=== PATIENT | male | born 1965 | race Caucasian/White ===

== ENCOUNTER → 2019-02-16 | Day surgery (SDC) | payer OTHER ==
[~2019-02-16] MED LIST: CIALIS2.5 MG; EPINEPHRINE HCL 1:1000 1ML 1 MG/ML AMP ONE; FLOMAX0.4 MG PO; FLONASE; KETAMINE HCL INJ 50 MG/ML 10 ML VIAL ONE; MIDAZOLAM HCL 2 MG/2 ML VIAL ONE; PROPOFOL IV EMULSION 10 MG/ML 50 ML VIAL ONE; TESTOSTERONE IJ; TESTOSTERONE5 GM; ZEGERID 20 MG1 EACH; ZYRTEC10 M3
[2019-02-16 11:00] VITALS: BP 120/82
--- NOTE | 2019-02-16 17:45 | Operative Report ---
DATE OF PROCEDURE: 02/16/2019 SURGEON: Bret Morelos MD PROCEDURES: Esophagogastroduodenoscopy with biopsies and colonoscopy with polypectomy and biopsies. INDICATIONS FOR EGD: Heartburn, bloating. INDICATIONS FOR COLONOSCOPY: Colorectal cancer screening. MEDICATIONS: The patient was done under MAC, please see anesthesiologist's note. PROCEDURE IN DETAIL: With the patient in left lateral decubitus position, a flexible fiberoptic Olympus gastroscope was introduced into the esophagus under direct visualization without any difficulty. There was some patchy erythema noted in distal esophagus. Minute tongues of velvety red mucosa were noted to extend proximally from the GE junction and biopsies were obtained to rule out Akers's. The scope was then advanced with ease into the stomach traversing a small sliding hiatal hernia. Mucosa overlying the antrum and the body revealed some patchy erythema and low-grade to moderate edema and biopsies were obtained and sent to stain for H pylori. Several hyperplastic-appearing polyps were noted in the body and some were partially excised with the cold biopsy forceps. The pylorus was of normal contour and shape, it was intubated with ease and the scope was advanced all the way to the second portion of the duodenum. Biopsies were obtained from the proximal second portion and duodenal bulb to rule out sprue. The scope was then withdrawn back into the stomach and retroflexed and mucosa overlying the fundus and cardia appeared to be within normal limits. The scope was then straightened out. The scope was subsequently withdrawn. The patient tolerated the procedure well. IMPRESSION: 1. Distal esophagitis, mild. 2. Rule out Akers esophagus. 3. Small sliding hiatal hernia. 4. Gastritis, biopsied. Biopsies sent to stain for Helicobacter pylori. 5. Gastric polyps, hyperplastic appearing, some partially excised with the cold biopsy forceps. 6. Rule out sprue. PLAN: Follow up histology. Initiate Protonix 40 mg one p.o. q.a.m. a.c. PROCEDURE IN DETAIL: The patient was then turned around after adequate lubrication of the anal canal, flexible fiberoptic Olympus colonoscope was inserted into the rectum with ease and advanced all the way to the cecum. It was then withdrawn slowly. Mucosa overlying the cecum appeared to be within normal limits. One polyp was snared from the distal ascending colon. One polyp was hot biopsied from the transverse colon. One polyp was snared from the descending colon. Diverticular disease was noted to involve the sigmoid colon. There were some patchy mild inflammatory changes noted in the sigmoid and rectum and biopsies were obtained. One polyp was snared from the sigmoid colon. One polyp was hot biopsied from the rectum. The scope was then retroflexed into the distal rectum and small internal hemorrhoids were noted, none of which was actively bleeding. The scope was then straightened out, it was subsequently withdrawn. The patient tolerated the procedure well. IMPRESSION: 1. Ascending colon polyp, snared. 2. Transverse colon polyp, hot biopsied. 3. Descending colon polyp, snared. 4. Diverticulosis. 5. Sigmoid colon polyp, snared. 6. Rectal polyp, hot biopsied. 7. Proctosigmoiditis, mild, biopsies obtained. 8. Internal hemorrhoids, none actively bleeding. PLAN: Follow up histology. Initiate high-fiber, low-fat diet. Initiate high-fiber supplement. VSL#3 one p.o. daily. The patient might benefit from a followup colonoscopy in 3 years. Bret Morelos MD [facility] [place] /[id number] cc: John Lopez MD
== END | disposition home or self-care (01) ==
LOC: OR 06:52
PROVIDERS: ATTEND Internal Medicine Gastroenterology
DX: Z12.11 Encounter for screening for malignant neoplasm of colon (principal); D12.2 Benign neoplasm of ascending colon; D12.5 Benign neoplasm of sigmoid colon; D12.3 Benign neoplasm of transverse colon; R12 Heartburn; R14.0 Abdominal distension (gaseous); K20.9 Esophagitis, unspecified; K44.9 Diaphragmatic hernia without obstruction or gangrene; K29.70 Gastritis, unspecified, without bleeding; K31.7 Polyp of stomach and duodenum; K63.5 Polyp of colon; K57.30 Diverticulosis of large intestine without perforation or abscess without bleeding; K62.1 Rectal polyp; K63.89 Other specified diseases of intestine; K64.8 Other hemorrhoids; R03.0 Elevated blood-pressure reading, without diagnosis of hypertension; Z01.810 Encounter for preprocedural cardiovascular examination; K22.70 Barrett's esophagus without dysplasia
CPT/HCPCS: 43239; 45384; 45385; 93005; J0171; J2250; J2704; 45378

== ENCOUNTER 2019-03-15 11:14 | Inpatient (IN) | payer OTHER ==
[~2019-03-15] VITALS: Ht 188 cm; Wt 181.4 kg
[~2019-03-15 11:14] MED LIST changes: -EPINEPHRINE HCL 1:1000 1ML 1 MG/ML AMP ONE; -KETAMINE HCL INJ 50 MG/ML 10 ML VIAL ONE; -MIDAZOLAM HCL 2 MG/2 ML VIAL ONE; -PROPOFOL IV EMULSION 10 MG/ML 50 ML VIAL ONE
[2019-03-15] MEDS ORDERED: SODIUM CHLORIDE 0.9% 1000ML 1,000 ML IV SCH (12:00)
[2019-03-15] MEDS ORDERED: DILTIAZEM HCL 5 MG/ML 5 ML VIAL IV NR ×2 (12:00)
[2019-03-15] MEDS ORDERED: DILTIAZEM HCL 125 ML IV STA (12:06)
[2019-03-15 12:17] LABS: BASOPHILS # (AUTO) 0.1 (0.0-0.1); BASOPHILS % 0.5 % (0.0-1.0); EOSINOPHILS # (AUTO) 0.1 (0.0-0.4); EOSINOPHILS % 0.5 % (0.0-6.0); HEMATOCRIT 51.2 % (38.2-49.6); HEMOGLOBIN 16.8 g/dL (14.0-18.0); LYMPHOCYTES # (AUTO) 1.6 (1.0-3.2); LYMPHOCYTES % 13.9 % (18.0-39.1); MEAN CORPUSCULAR HEMOGLOBIN 27.4 pg (28-32); MEAN CORPUSCULAR HGB CONC 32.8 g/dL (31-35); MEAN CORPUSCULAR VOLUME 83.4 fL (81-99); MONOCYTES # (AUTO) 0.8 (0.2-0.8); MONOCYTES % 7.1 % (4.4-11.3); NEUTROPHILS # (AUTO) 8.9 (2.1-6.9); NEUTROPHILS % 76.7 % (38.7-80.0); PLATELET COUNT 241 x10e3/uL (140-360); RED BLOOD COUNT 6.14 x10e6/uL (4.3-5.7); RED CELL DISTRIBUTION WIDTH 14.1 % (11.7-14.4)
[2019-03-15 12:27] LABS: INR 1.04; PROTHROMBIN TIME 14.1 seconds (11.9-14.5)
[2019-03-15 12:28] LABS: PARTIAL THROMBOPLASTIN TIME 24.4 seconds (23.8-35.5)
[2019-03-15] MEDS ORDERED: ASPIRIN 81 MG CHEW TAB PO ONE (12:30)
[2019-03-15] MEDS ORDERED: ONDANSETRON HCL INJ 2MG/ML 2ML 2 MG/ML VIAL IV PRN (12:30)
[2019-03-15] MEDS ORDERED: ENOXAPARIN SODIUM INJ 100 MG/ML SYR SC SCH (12:30)
[2019-03-15 12:37] LABS: ALANINE AMINOTRANSFERASE 48 IU/L (0-55); ALBUMIN 3.4 g/dL (3.5-5.0); ALBUMIN/GLOBULIN RATIO 1.1 (0.8-2.0); ALKALINE PHOSPHATASE 54 IU/L (40-150); ANION GAP 13.8 mmol/L (8-16); BLOOD UREA NITROGEN 22 mg/dL (7-26); BUN/CREATININE RATIO 17 (6-25); CARBON DIOXIDE 25 mmol/L (22-29); CHLORIDE 101 mmol/L (98-107); CREATINE KINASE 116 IU/L (30-200); CREATININE, SERUM 1.28 mg/dL (0.72-1.25); EST GLOMERULAR FILTRATION RATE 59 ML/MIN (60-); GLUCOSE 125 mg/dL (74-118); MAGNESIUM 1.9 MG/DL (1.3-2.1); POTASSIUM 3.8 mmol/L (3.5-5.1); SODIUM 136 mmol/L (136-145)
--- NOTE | 2019-03-15 12:38 | Diagnostic Imaging Report ---
Examination: Single AP view of the chest. COMPARISON: None. INDICATION: Shortness of breath, tachycardia DISCUSSION: Lung volumes are low with bibasilar opacities. Trace right pleural effusion is suspected. Cardiomediastinal contour is enlarged with prominence of the central pulmonary vasculature. No acute osseous abnormality. IMPRESSION: Cardiomegaly with pulmonary venous congestion and suspected trace right pleural effusion. Signed by: Dr. Obed Morales M.D. on 03/15/2019 12:35 PM
[2019-03-15 12:56] LABS: THYROID STIMULATING HORMONE 2.356 uIU/mL (0.350-4.940)
[2019-03-15] MEDS: FAMOTIDINE 20 MG/2 ML VIAL IV SCH ×2 (13:10→21:50)
[2019-03-15] MEDS: ENOXAPARIN SOD INJ 60 MG/0.6 ML SYR SC SCH ×2 (13:10→21:50)
[2019-03-15] MEDS ORDERED: METOPROLOL TARTRATE INJ 1 MG/ML VIAL IV ONE (13:15)
--- OUTSIDE RECORDS SUMMARY | 2019-03-15 13:26 | XMS REPORT ---
Author Author [facility] Address Unknown Phone Unavailable Care Team Providers Care Supervisor [employer] Name Role Phone Brenda RINALDI Unavailable Unavailable Problems This patient has no known problems. Allergies, Adverse Reactions, Alerts This patient has no known allergies or adverse reactions. Medications This patient has no known medications. Results Test Description Test Time Test Comments Text Results Atomic Results Result Comments CHEST SINGLE (PORTABLE) 2019-03-15 12:34:00 [place] [address] Patient Name: ROSEANN COLEMAN MR #: [id number] : 1965 Age/Sex: 53/M Req #: [id number] Adm Physician: Ordered by: RENATE SCHWARTZ ADVICE NURSE Report #: [id number] Location: ER Room/Bed: Procedure: [id number] DX/CHEST SINGLE (PORTABLE) Exam Date: 03/15/19 Exam Time: 1210 REPORT STATUS: Signed Examination: Single AP view of the chest. COMP ARISON: None. INDICATION: Shortness of breath, tachycardia DISCUSSION: Lung volumes are low with bibasilar opacities. Trace right pleural effusion is suspected. Cardiomediastinal contour is enlarged with prominence of the central pulmonary vasculature. No acute osseous abnormality. IMPRESSION: Cardiomegaly with pulmonary venous congestion and suspected trace right pleural effusion. Signed by: Dr. Emre Frank M.D. on 03/15/2019 12:35 PM Dictated By: EMRE FRANK MD 1235 Transcribed By: DERIK on 03/15/19 1235 COPY TO: RENATE SCHWARTZ NP
--- NOTE | 2019-03-15 14:25 | NUR ---
patient transported to radiology for ct scan and then to icu room 195 patient on monitor and iv drip as ordered.
[2019-03-15] MEDS ORDERED: SODIUM CHLORIDE 0.9% 50ML 100 ML ONE (14:58)
[2019-03-15] MEDS ORDERED: IOPAMIDOL 370 MG/ML 200 ML INFUS..BTL INJ ONE (14:59)
--- NOTE | 2019-03-15 14:59 | NUR ---
Bariatric bed ordered for this patient @ [phone] today confirmation # [id number]
--- NOTE | 2019-03-15 15:45 | NUR ---
PATIENT RECEIVED FROM ER VIA STRETCHER. HE IS ALERT AND OX4. DENIES ANY PAIN OR DISCOMFORT. TELEMETRY SHOWS A-FIB W/AVR AND RATE OF 130. SARA, ADOPTED SISTER AT BEDSIDE. ON CARDIZEM DRIP AT 20MG/HR. DR. Jere RUVALCABA HERE TO SEE PATIENT.
[2019-03-15 16:00] VITALS: BP 105/77
--- NOTE | 2019-03-15 16:03 | Diagnostic Imaging Report ---
EXAMINATION: CT of the chest with contrast, PE protocol. TECHNIQUE: Spiral CT images of the chest were performed from the lung apices through the level of the adrenal glands after the IV administration of 100 cc Isovue-370. Thin section reconstructions were obtained with special concentration on the pulmonary arteries. COMPARISON: <none> CLINICAL HISTORY:Shortness of breath DISCUSSION: Vasculature: Filling defects within the apical and posterior segmental branches of the right upper lobe pulmonary artery (series 3 image 36 and image 46-47). No additional filling defects within the main, right or left, or their lobar pulmonary arteries. Distal segmental arterial evaluation is partially limited secondary to respiratory motion and patient body habitus. Pulmonary outflow tract is at the upper limits of normal in caliber. No ectasia or aneurysmal dilatation of the thoracic aorta. No right ventricular dilatation or septal bowing. Lungs: Perihilar predominant groundglass opacities and interlobular septal thickening. Passive atelectasis of the posterior basal segments of the lower lobes. Airways: Trachea, mainstem bronchi, and lobar bronchi are patent. Evaluation of the segmental bronchi is limited. Pleura: Trace bilateral pleural effusions. Heart and mediastinum: Cardiomegaly with prominent epicardial fat. No axillary, hilar, or mediastinal lymphadenopathy. Abdomen: Visualized portions of the liver and spleen are grossly unremarkable. Bones and soft tissues: No osseous destructive lesions. IMPRESSION: Limited evaluation secondary to respiratory motion artifact and patient body habitus. Apical and posterior right upper lobe segmental pulmonary emboli without evidence of right heart strain. Borderline enlargement of the pulmonary outflow tract suggests underlying pulmonary hypertension. Cardiomegaly with interstitial pulmonary edema and trace bilateral pleural effusions with passive atelectasis of the posterior basal segments of the lower lobes. Findings were discussed by telephone with Dr. Redmond at 3:35 PM 03/15/2019. Signed by: Dr. Obed Morales M.D. on 03/15/2019 4:00 PM
[2019-03-15] MEDS ORDERED: FUROSEMIDE INJ 10 MG/ML 4 ML VIAL IV ONE (16:15)
[2019-03-15] MEDS ORDERED: METOPROLOL TARTRATE INJ 1 MG/ML VIAL IV PRN (16:15)
[2019-03-15 17:00] VITALS: BP 117/60
[2019-03-15] MEDS ORDERED: DIGOXIN INJ 0.25 MG/ML 2 ML AMP IV ONE (17:00)
[2019-03-15 18:00] VITALS: BP 130/94
[2019-03-15 18:39] LABS: CLARITY,URINE CLEAR (CLEAR); COLOR,URINE YELLOW (YELLOW); LEUKOCYTE ESTERASE ,URINE NEGATIVE (NEGATIVE); NITRITE,URINE NEGATIVE (NEGATIVE)
[2019-03-15 18:40] LABS: BILIRUBIN,URINE NEGATIVE (NEGATIVE); KETONES,URINE NEGATIVE (NEGATIVE); PROTEIN,URINE DIPSTICK NEGATIVE (NEGATIVE); URINE UROBILINOGEN 0.2 mg/dL (0.2 - 1)
[2019-03-15 18:42] LABS: BACTERIA,URINE FEW /HPF; EPITHELIAL CELLS,URINE FEW /LPF; WBC,URINE (MAN) 0-5 /HPF (0-5)
[2019-03-15 19:00] VITALS: BP 130/98
[2019-03-15] MEDS: DILTIAZEM HCL 125 ML IV SCH (20:00)
[2019-03-15] MEDS ORDERED: ACETAMINOPHEN 325 MG TAB PO PRN (20:30)
[2019-03-15 20:50] LABS: CREATINE KINASE MB 1.1 ng/mL (0-5.0)
--- NOTE | 2019-03-15 23:09 | Consultation ---
DATE OF CONSULTATION: 03/15/2019 Cardiology Consult Note REASON FOR CONSULT: Atrial fibrillation with RVR. CHIEF COMPLAINT: Shortness of breath. HISTORY OF PRESENT ILLNESS: The patient is a 53-year-old man with history of morbid obesity, likely sleep apnea, had recent sleep study, results pending, history of hypogonadism, on testosterone replacement and prostate problems, who presents with several weeks of feeling weak and having shortness of breath, had orthopnea at home to the point, where he could not sleep in his bed and had to sleep in his recliner. He also complains about PND and is having to urinate at night frequently recently and some lower extremity edema. Does not have history of CAD or any other heart issues prior. He went to urgent care last week with complaints about shortness of breath and dry cough and was given some steroids and antibiotics for presumed bronchitis. However, symptoms did not improve. He went to the primary care doctor today, had EKG done showing atrial fibrillation with RVR and was told to go to the ER. Upon arrival to the ER, heart rates were in the 190s, so started on diltiazem drip. Heart rates are not improved in the 130s. Denies any chest pain. He says the shortness of breath is better after being put on oxygen. PAST MEDICAL HISTORY: As noted above. SOCIAL HISTORY: The patient does not smoke, drink, or abuse drugs. FAMILY HISTORY: As per HPI, otherwise noncontributory. REVIEW OF SYSTEMS: As per HPI. OUTPATIENT MEDICATIONS: Reviewed. OBJECTIVE: VITAL SIGNS: Temperature afebrile, pulse 136, respiratory rate 18, blood pressure 132/89, and saturating 98% on 4 L nasal cannula. GENERAL: Morbidly obese white man, in no acute distress. CARDIOVASCULAR: Irregular rate and rhythm, tachycardic. No murmurs. LUNGS: Bibasilar crackles. ABDOMEN: Morbidly obese, soft, nontender. EXTREMITIES: Lower extremity with bilateral lower extremity edema 1+. Warm, well perfused. NEURO AND PSYCH: Alert and oriented to person, place, and time. Normal affect. INPATIENT MEDICATIONS: Reviewed. LABORATORY DATA: Reviewed. Troponin is negative x1. BNP of 630. Creatinine 1.28. White count of 11.6, hemoglobin is 16. IMAGING DATA: Reviewed. Chest CT shows subsegmental pulmonary emboli, cardiomegaly and pulmonary edema. Electrocardiogram reviewed, shows atrial fibrillation with RVR. ASSESSMENT AND PLAN: 1. Atrial fibrillation with rapid ventricular response. 2. Pulmonary embolism. 3. Acute congestive heart failure exacerbation. PLAN: We will up titrate IV diltiazem drip, echocardiogram once heart rate better controlled. We will add digoxin for heart control if needed. Start IV Lasix. Further recommendations upon results of the echocardiogram. Thank you for this consult. We will continue to follow. MD LESTER Zee/MODL /[id number]
[2019-03-15 23:59] VITALS: BP 133/85
[2019-03-16] VITALS (16 sets, daily range): BP systolic 92–154; BP diastolic 64–114
[2019-03-16] MEDS: DILTIAZEM HCL 125 ML IV SCH (02:19)
--- NOTE | 2019-03-16 03:11 | History and Physical ---
CHIEF COMPLAINT: This is a 53-year-old gentleman, sent from the clinic for atrial fibrillation with rapid ventricular response. HISTORY OF PRESENTING ILLNESS: Mr. Vick Guerra has started to have upper respiratory symptoms, bronchitis, was seen in an Urgent Care Clinic. The patient was given p.o. antibiotics and also started on p.o. bronchodilators. The patient was feeling worse and the patient came to the clinic today and EKG was done. The patient was found to have atrial fibrillation with RVR, sent to the emergency room and the patient was given diltiazem. The patient's rate did get better, but the patient is back in atrial fibrillation with RVR. PAST MEDICAL HISTORY: 1. History of testosterone deficiency. 2. History of questionable diagnosis of sleep apnea. 3. History of morbid obesity. 4. The patient with history of erectile dysfunction. MEDICATIONS: He takes at home are cetirizine 10 mg daily. The patient is on Zegerid once a day, Cialis 2.5 mg daily. The patient has a history of benign prostatic hypertrophy, the patient is taking 0.4 mg x2 of Flomax, Flonase, and testosterone 2 mL injection every 3 weekly. SOCIAL HISTORY: No EtOH. No IV drug abuse. The patient does not have any smoking history either. FAMILY HISTORY: Noncontributory. ALLERGIES: NO KNOWN DRUG ALLERGIES. REVIEW OF SYSTEMS: Negative for chest pain. Positive for some shortness of breath. No nausea, vomiting, or diarrhea. No constipation. No rectal bleeding. No hematochezia. No hematemesis. Positive for shortness of breath on exertion, and the patient also has history of pedal edema. PHYSICAL EXAMINATION: VITAL SIGNS: Temperature is 98.9, pulse of 148, blood pressure is 159/37, respirations of 18. The patient is standing at 98% on 2 L of oxygen. HEENT: Normocephalic, atraumatic. The patient has a very thick neck. CVS: S1 and S2 irregular, distant, and also has tachycardic. ABDOMEN: Nontender, nondistended. Positive for an umbilical hernia. EXTREMITIES: No clubbing. No cyanosis. Positive for 2+ edema. LABORATORY VALUES: Initial white count 7.62, hemoglobin of 16.8, hematocrit 51.2, no left shift present. Chemistries; sodium 136, potassium 3.8, BUN of 22, creatinine of 1.28, total bilirubin is 1.3. BNP was 630.6. The patient's troponin is less than 0.01. Creatine kinase was 116, CK-MB was 1.40. Coags normal. D-dimer is 0.67. The patient's CT findings of the chest secondary to elevated D-dimer was limited evaluation secondary to respiratory motion, apical and posterior right upper lobe segmental pulmonary emboli without evidence of right heart strain, borderline enlargement of the pulmonary flow tract, and cardiomegaly with interstitial edema. The patient's CT chest x-ray shows cardiomegaly with pulmonary venous congestion. ASSESSMENT: 1. Atrial fibrillation with rapid ventricular response. 2. Pulmonary embolism. 3. Hypertension. 4. Hyperlipidemia. 5. Sleep apnea with obesity hypoventilation syndrome. 6. Cor pulmonale. 7. History of erectile dysfunction. PLAN: Plan is to continue to anticoagulate the patient with Lovenox. The patient has been started on the dose of Lovenox. The patient has been given Lasix 40 mg IV. Echocardiogram will be ordered. The patient will be on metoprolol 25 mg twice a day for rate control. We will check his TSH. Lipid panel has been ordered. CBC and CMP to be followed in the morning. The patient will need complete cardiac workup on a later date and will need anticoagulation bridged over to Coumadin and/or NOAC. Further recommendation per clinical course. We will continue to monitor the patient. A consult with Dr. Levin has been done for his atrial fibrillation with RVR. The patient might need amiodarone. We will leave it up to Cardiology. MD BEATA Ling/MODL /[id number]
[2019-03-16 05:21] LABS: BASOPHILS # (AUTO) 0.1 (0.0-0.1); BASOPHILS % 0.7 % (0.0-1.0); EOSINOPHILS # (AUTO) 0.1 (0.0-0.4); HEMATOCRIT 46.4 % (38.2-49.6); HEMOGLOBIN 15.1 g/dL (14.0-18.0); LYMPHOCYTES # (AUTO) 1.5 (1.0-3.2); LYMPHOCYTES % 14.7 % (18.0-39.1); MEAN CORPUSCULAR HEMOGLOBIN 27.4 pg (28-32); MEAN CORPUSCULAR HGB CONC 32.5 g/dL (31-35); MEAN CORPUSCULAR VOLUME 84.2 fL (81-99); MONOCYTES # (AUTO) 0.8 (0.2-0.8); MONOCYTES % 8.2 % (4.4-11.3); NEUTROPHILS # (AUTO) 7.6 (2.1-6.9); PLATELET COUNT 216 x10e3/uL (140-360); RED BLOOD COUNT 5.51 x10e6/uL (4.3-5.7); RED CELL DISTRIBUTION WIDTH 13.9 % (11.7-14.4)
[2019-03-16 05:37] LABS: ALANINE AMINOTRANSFERASE 39 IU/L (0-55); ALBUMIN 3.2 g/dL (3.5-5.0); ALBUMIN/GLOBULIN RATIO 1.1 (0.8-2.0); ALKALINE PHOSPHATASE 50 IU/L (40-150); ANION GAP 13.8 mmol/L (8-16); BLOOD UREA NITROGEN 19 mg/dL (7-26); BUN/CREATININE RATIO 17 (6-25); CALCIUM 8.4 mg/dL (8.4-10.2); CARBON DIOXIDE 27 mmol/L (22-29); CHLORIDE 103 mmol/L (98-107); CHOL/HDL RATIO 5.4 (3.9-4.7); CHOLESTEROL 156 MD/DL (0-199); EST GLOMERULAR FILTRATION RATE > 60 ML/MIN (60-); GLUCOSE 129 mg/dL (74-118); HDL CHOLESTEROL 29 MG/DL (40-60); LDL CHOLESTEROL 102 MG/DL (60-130); POTASSIUM 3.8 mmol/L (3.5-5.1); SODIUM 140 mmol/L (136-145); TRIGLYCERIDES 123 MG/DL (0-149)
[2019-03-16 05:47] LABS: MAGNESIUM 2.2 MG/DL (1.3-2.1)
[2019-03-16 06:10] LABS: FREE THYROXINE INDEX 2.2351 (1.4-3.8); THYROID STIMULATING HORMONE 1.52 uIU/mL (0.350-4.940)
[2019-03-16] MEDS: FUROSEMIDE INJ 10 MG/ML 4 ML VIAL IV SCH ×2 (06:56→10:39)
[2019-03-16] MEDS: PANTOPRAZOLE SOD 40 MG TABEC PO SCH ×2 (06:56→09:10)
[2019-03-16] MEDS ORDERED: METOPROLOL TARTRATE 25 MG TAB PO SCH ×2 (09:00→21:00)
[2019-03-16] MEDS: ENOXAPARIN SOD INJ 60 MG/0.6 ML SYR SC SCH ×2 (09:10→20:30)
[2019-03-16] MEDS: FAMOTIDINE 20 MG/2 ML VIAL IV SCH ×2 (09:10→20:30)
[2019-03-16 15:27] LABS: CREATINE KINASE MB 0.9 ng/mL (0-5.0)
--- NOTE | 2019-03-16 19:00 | NUR ---
Received patient from day nurse, patient is alert and oriented x 3. patient is currently on Cardizem drip, as per report, Dr. Levin ordered to stop drip at 2100 and patient started on po metoprolol. patient is currently stable.
[2019-03-16] MEDS: METOPROLOL TARTRATE 50 MG TAB PO SCH (20:30)
--- NOTE | 2019-03-16 21:00 | Progress Note ---
DATE: 03/16/2019 Cardiology Progress Note SUBJECTIVE: No major events overnight. Feels a little bit better today. OBJECTIVE: VITAL SIGNS: Temperature 98.6, pulse 83, respiratory rate 22, blood pressure 116/92, and saturating 96% on 2 L nasal cannula. GENERAL: Obese man, in no acute distress. CARDIOVASCULAR: Irregular rate and rhythm. No murmurs, rubs, or gallops. LUNGS: Decreased breath sounds in bilateral bases. ABDOMEN: Obese, soft, nontender, and nondistended. NEURO AND PSYCH: Alert and oriented to person, place, and time. Normal affect. INPATIENT MEDICATIONS: Reviewed. LABORATORY DATA: Reviewed. TELEMETRY DATA: Reviewed, now rate controlled atrial fibrillation. Echocardiogram reviewed, shows mild to moderately reduced LV ejection fraction of 35% to 40%. No significant valvular abnormalities. ASSESSMENT AND PLAN: 1. Acute systolic congestive heart failure exacerbation. 2. Atrial fibrillation with rapid ventricular response. 3. Pulmonary embolism, acute. PLAN: We will up titrate metoprolol to 50 mg and see if we can titrate diltiazem drip off. Plan for CLAY cardioversion tomorrow. Continue IV Lasix. Continue full-dose Lovenox. We will convert to Xarelto prior to discharge. MD LESTER Zee/LEATHA /[id number]
--- NOTE | 2019-03-16 21:51 | Progress Note ---
DATE: Progress Note SUBJECTIVE: The patient is here for pulmonary embolism, atrial fibrillation with rapid ventricular response, history of COPD, and history of morbid obesity. The patient currently is still in atrial fibrillation. The patient's on metoprolol has been increased to 50 mg twice a day. Cardizem drip has been decreased. The patient continues to be short of breath. PHYSICAL EXAMINATION: GENERAL: The patient is morbidly obese. VITAL SIGNS: Temperature is 98.6, pulse of 83, and blood pressure is 116/92. The patient's pulse oximetry is 94% on 2 liters of oxygen. HEENT: Normocephalic and atraumatic. Pupils are reactive to light and accommodation. CVS: Irregularly irregular. ABDOMEN: Protuberant. Umbilical hernia present. EXTREMITIES: No clubbing. No cyanosis. Positive for 1+ edema. IMAGING STUDIES: CT chest, pulmonary embolism. The patient's echocardiogram showed ejection fraction of 40% to 45%. ASSESSMENT: 1. Atrial fibrillation with rapid ventricular response. Continue with metoprolol, beta blockade. Titrate up Cardizem. 2. Pulmonary embolism. Continue with Lovenox. The patient will need anticoagulation and continue with therapy. 3. Sleep apnea. We will need Pulmonary consult and we will consult Dr. Sherwood. 4. Morbid obesity. Dietary recommendation has been made. Further recommendation per clinical course. We will continue to monitor the patient in ICU. MD HARIS LingJ/MODL /[id number]
[2019-03-17] VITALS (20 sets, daily range): BP systolic 118–155; BP diastolic 77–107
--- NOTE | 2019-03-17 02:21 | Consultation ---
DATE OF CONSULTATION: Pulmonary Consultation REASON FOR CONSULTATION: Pulmonary embolism. HISTORY OF PRESENT ILLNESS: Mr. Guerra is a 53-year-old male, who presented to the emergency room with shortness of breath, found to have pulmonary embolism and atrial fibrillation. He possibly has a history of sleep apnea. Recently, he had a sleep study, but did not get the results. REVIEW OF SYSTEMS: GENERAL: Denies any fever or chills. HEAD: Denies any head trauma. ENT: Denies any earache. CVS: Denies any chest pain. RESPIRATORY: Shortness of breath. The rest of the review of systems are negative except as in HPI. PAST MEDICAL HISTORY: Obesity. FAMILY AND SOCIAL HISTORY: He does not smoke. Does not drink. His job involves driving. PHYSICAL EXAMINATION: VITAL SIGNS: Temperature 98.6, pulse of 82, blood pressure 117/89, respiratory rate 18, O2 saturation 94% on 2 L. HEENT: Head is atraumatic and normocephalic. NECK: Supple. CHEST: Clear to auscultation bilaterally. HEART: S1 and S2 irregular. ABDOMEN: Soft, nontender. EXTREMITIES: Trace pedal edema. NEUROLOGIC: Awake and alert. LABORATORY DATA: White count of 10,000, hemoglobin 15,000, platelets 216. Chemistries within normal limits. ASSESSMENT: Mr. Guerra is a 53-year-old male, admitted with pulmonary embolism. CT of the chest done in the emergency room, which showed apical and posterior right upper lobe segmental pulmonary embolism. Continue the patient on Lovenox as ordered. The patient has been scheduled for elective cardioversion with CLAY by Cardiology. The patient has atrial fibrillation and the patient is on Cardizem infusion. High likelihood of sleep apnea, continue the patient on BiPAP during hours of sleep. MD LYNDSEY Lemons/LEATHA /[id number]
[2019-03-17 05:07] LABS: BASOPHILS # (AUTO) 0.1 (0.0-0.1); BASOPHILS % 0.6 % (0.0-1.0); EOSINOPHILS # (AUTO) 0.2 (0.0-0.4); EOSINOPHILS % 2.2 % (0.0-6.0); HEMATOCRIT 46.6 % (38.2-49.6); HEMOGLOBIN 15.1 g/dL (14.0-18.0); LYMPHOCYTES # (AUTO) 1.3 (1.0-3.2); LYMPHOCYTES % 13.3 % (18.0-39.1); MEAN CORPUSCULAR HEMOGLOBIN 27.4 pg (28-32); MEAN CORPUSCULAR HGB CONC 32.4 g/dL (31-35); MEAN CORPUSCULAR VOLUME 84.4 fL (81-99); MONOCYTES # (AUTO) 0.8 (0.2-0.8); MONOCYTES % 7.8 % (4.4-11.3); NEUTROPHILS # (AUTO) 7.3 (2.1-6.9); PLATELET COUNT 205 x10e3/uL (140-360); RED BLOOD COUNT 5.52 x10e6/uL (4.3-5.7); RED CELL DISTRIBUTION WIDTH 13.7 % (11.7-14.4)
[2019-03-17 05:38] LABS: ALANINE AMINOTRANSFERASE 40 IU/L (0-55); ALBUMIN 3.3 g/dL (3.5-5.0); ALBUMIN/GLOBULIN RATIO 1.1 (0.8-2.0); ALKALINE PHOSPHATASE 49 IU/L (40-150); ANION GAP 9.7 mmol/L (8-16); BLOOD UREA NITROGEN 18 mg/dL (7-26); BUN/CREATININE RATIO 18 (6-25); CALCIUM 8.5 mg/dL (8.4-10.2); CARBON DIOXIDE 31 mmol/L (22-29); CHLORIDE 99 mmol/L (98-107); CREATININE, SERUM 0.99 mg/dL (0.72-1.25); EST GLOMERULAR FILTRATION RATE > 60 ML/MIN (60-); GLUCOSE 128 mg/dL (74-118); POTASSIUM 3.7 mmol/L (3.5-5.1); SODIUM 136 mmol/L (136-145)
--- NOTE | 2019-03-17 06:59 | NUR ---
Patient endorsed to next shift for continuity of care.
[2019-03-17] MEDS: ENOXAPARIN SOD INJ 60 MG/0.6 ML SYR SC SCH (10:45)
[2019-03-17] MEDS: METOPROLOL TARTRATE 50 MG TAB PO SCH ×2 (10:45→21:17)
[2019-03-17] MEDS: FAMOTIDINE 20 MG/2 ML VIAL IV SCH ×2 (10:45→21:16)
[2019-03-17] MEDS: DILTIAZEM HCL 125 ML IV SCH (11:51)
[2019-03-17] MEDS ORDERED: SODIUM CHLORIDE 0.9% 500ML 500 ML ONE ×2 (13:54→14:35)
[2019-03-17] MEDS ORDERED: [UNRECOGNIZED DRUG - SUPPLY] XX ONE (14:09)
[2019-03-17] MEDS ORDERED: BENZOCAINE 20% SPR 60 ML CAN MT ONE (14:10)
--- NOTE | 2019-03-17 14:24 | Progress Note ---
DATE: 03/17/2019 Cardiology Progress Note SUBJECTIVE: No major events overnight. OBJECTIVE: VITAL SIGNS: Temperature 98.0, pulse 85, respiratory rate 18, blood pressure 126/98, and saturating 97% on 2 L nasal cannula. GENERAL: Obese man in no acute distress. CARDIOVASCULAR: Irregular rate and rhythm. No murmurs, rubs, or gallops. LUNGS: Decreased breath sounds, but clear to auscultation. ABDOMEN: Obese. Soft, nontender, nondistended. NEURO AND PSYCH: Alert and oriented to person, place, and time. Normal affect. INPATIENT MEDICATIONS: Reviewed. LABORATORY DATA: Reviewed. TELEMETRY DATA: Reviewed. Remains in atrial fibrillation; however, now rate controlled. ASSESSMENT: 1. Acute systolic congestive heart failure exacerbation. 2. Atrial fibrillation with rapid ventricular response. 3. Acute pulmonary embolism, subsegmental. PLAN: Continue titrating beta blockers, so IV diltiazem can be discontinued. Plan for CLAY cardioversion today. Continue full dose Lovenox. MD LESTER Zee/MODL /[id number]
[2019-03-17] MEDS ORDERED: MIDAZOLAM HCL 2 MG/2 ML VIAL ONE (18:45)
[2019-03-17] MEDS ORDERED: FENTANYL CITRATE/PF 100MCG/2 ML INJ ONE (19:20)
--- NOTE | 2019-03-17 19:30 | Progress Note ---
DATE: SUBJECTIVE: The patient is here for AFib with RVR and pulmonary embolism. The patient is currently doing better. He is on a BiPAP for sleep apnea. No chest pain. No shortness of breath. No nausea, vomiting, or diarrhea. The patient is to use BiPAP in the evening. Currently, the patient is cardioverted back to normal sinus rhythm. The patient has been started on Eliquis, off Lovenox. MEDICATIONS: 1. Eliquis. 2. Diltiazem. 3. Famotidine. 4. Furosemide. 5. Metoprolol. 6. Pantoprazole for DVT prophylaxis. OBJECTIVE: VITAL SIGNS: Temperature is 97.4, pulse of 86, and respirations 16. The patient is on 2 L at 96% of O2 saturation. HEENT: Normocephalic, atraumatic. Pupils are reactive to light and accommodation. CVS: S1 and S2 normal. Regular rate and rhythm. ABDOMEN: Nontender and nondistended. EXTREMITIES: No clubbing, no cyanosis. Positive edema. LABORATORY DATA: White count is 9.71, hemoglobin 15.1, hematocrit of 46.6. Chemistry; sodium 136, BUN of 18, creatinine 0.99, estimated GFR of above 60, glucose of 128. Troponins have been trended to be negative. T3 was 39.4, TSH 1.520. ASSESSMENT: 1. Atrial fibrillation with rapid ventricular response status post cardioversion. The patient is in normal sinus rhythm now. 2. Pulmonary embolism. 3. Hypertension. 4. Morbid obesity. 5. Sleep apnea. 6. Elevated glucose levels. PLAN: Plan is to continue with BiPAP. Continue with Eliquis. Continue with metoprolol 50 mg twice a day. Further recommendation per clinical course. The patient has been educated on diet and counseling on losing weight. Further recommendation per clinical course. Armand Farrell MD ASJ/MODL /[id number]
--- NOTE | 2019-03-17 20:00 | NUR ---
Patient off oxygen, ambulated to restroom and took shower independently, ambulated back to bed, O2 sat off oxygen and after activity 93%
[2019-03-17] MEDS: APIXABAN 5 MG TABLET PO SCH (21:16)
--- NOTE | 2019-03-17 21:40 | NUR ---
PT IS TRANSFERRED FROM ICU TO ROOM 197 .PT IS AOX3 DENIES PAIN .RESPIRATIONS ARE EVEN AND UNLABORED .TELE SHOWS SR .CALL LIGHT WITH IN REACH .CONTINUE TO MONITOR
--- NOTE | 2019-03-17 22:33 | NUR ---
PT C/O PAIN ,GIVEN ORDERED MORPHINE .CONTINUE TO MONITOR Addendum: 03/18/19 at 0639 by Mo Guzmán RN WRONG PT
[2019-03-18] VITALS (8 sets, daily range): BP systolic 125–157; BP diastolic 77–113
--- NOTE | 2019-03-18 | NUR ---
PT RESTING ,NO ACUTE DISTRESS NOTED .CALL LIGHT WITH IN REACH .CONTINUE TO MONITOR
--- NOTE | 2019-03-18 06:30 | NUR ---
PT RESTING NO ACUTE DISTRESS NOTED .VITAL S STABLE .CALL LIGHT WITH IN REACH .CONTINUE TO MONITOR
--- NOTE | 2019-03-18 06:59 | NUR ---
REPORT GIVEN TO THE ONCOMING NURSE.
--- NOTE | 2019-03-18 07:21 | NUR ---
patient awake and alert. no c/o pain or sob, no s/s distress. vs WNL. Dr Bud serrano, per MD patient cardioverted and on appropriate rx, continue to monitor patient and possible dc tomorrow.
[2019-03-18] MEDS: FAMOTIDINE 20 MG/2 ML VIAL IV SCH ×2 (10:16→21:00)
[2019-03-18] MEDS: FUROSEMIDE INJ 10 MG/ML 4 ML VIAL IV SCH (10:16)
[2019-03-18] MEDS: APIXABAN 5 MG TABLET PO SCH ×2 (10:16→21:00)
[2019-03-18] MEDS: PANTOPRAZOLE SOD 40 MG TABEC PO SCH (10:16)
[2019-03-18] MEDS: METOPROLOL TARTRATE 50 MG TAB PO SCH (10:16)
--- NOTE | 2019-03-18 20:06 | Progress Note ---
DATE: SUBJECTIVE: This is Mr. Vick Guerra, who has come in for pulmonary embolism and atrial fibrillation with rapid ventricular response. The patient had a cardioversion done. The patient is currently asymptomatic. The patient is on BiPAP, was not able to do BiPAP yesterday. Because of claustrophobia, the patient is scheduled for a CPAP fitting as an outpatient. OBJECTIVE: VITAL SIGNS: Temperature is 97.9, pulse of 73, respirations of 20, blood pressure is 157/95, and pulse oximetry is 100% on 2 L of nasal cannula. HEENT: Normocephalic, atraumatic. Pupils are reactive to light and accommodation. CVS: S1, S2. Regular. ABDOMEN: Nontender, nondistended. EXTREMITIES: No clubbing. No cyanosis. Positive for edema. LABORATORY VALUES: Today's white count is 11, yesterday is 9.7, hemoglobin 15.1, hematocrit of 46.6. Sodium 137, potassium 3.7, and EGFR above 60. ASSESSMENT: Acute systolic congestive heart failure, atrial fibrillation with rapid ventricular response, acute pulmonary embolism, sleep apnea, morbid obesity, and obesity-hypoventilation syndrome. PLAN: Plan is to continue the patient on atrial fibrillation, status post cardioversion. Plan is to continue the patient on Eliquis, the patient is on 5 mg twice a day. Continue with metoprolol 50 mg q.12 hours and possible discharge in the morning on Eliquis. Further recommendation per clinical course. For sleep apnea, the patient needs to do an outpatient CPAP titration. MD BEATA Ling/MODL /[id number]
--- NOTE | 2019-03-18 20:51 | Progress Note ---
DATE: 03/18/2019 Cardiology Progress Note SUBJECTIVE: No major events overnight. Remains in normal sinus rhythm. OBJECTIVE: VITAL SIGNS: Temperature afebrile, pulse 73, respiratory rate 20, blood pressure 135/83, and saturating 100% on nasal cannula. GENERAL: Obese white man, in no acute distress. CARDIOVASCULAR: Regular rate and rhythm. No murmurs, rubs, or gallops. LUNGS: Decreased breath sounds at the bases, but clear to auscultation, otherwise. ABDOMEN: Obese, soft, nontender, nondistended. NEURO AND PSYCH: Alert and oriented to person, place, and time. Normal affect. INPATIENT MEDICATIONS: Reviewed. LABORATORY DATA: Reviewed. TELEMETRY DATA: Reviewed, now in normal sinus rhythm. ASSESSMENT: 1. Acute systolic congestive heart failure exacerbation. 2. Atrial fibrillation with rapid ventricular response. 3. Acute pulmonary embolism, subsegmental. PLAN: Stop full-dose Lovenox today, change to Eliquis. Continue beta blockers. We will add lisinopril to his regimen given decreased EF. Thank you for this consult. We will continue to follow. MD LESTER Zee/JUNEL /[id number]
--- NOTE | 2019-03-18 21:00 | NUR ---
patient with rashes on the back, complaining of itchiness, spoke to Dr Farrell. Orders in the mar
[2019-03-18] MEDS ORDERED: HYDROCORTISONE 1% CREAM 30 GM TUBE TOP PRN (21:15)
--- NOTE | 2019-03-18 22:00 | NUR ---
Patient put on bipap
[2019-03-19] VITALS: BP 145/95
[2019-03-19 04:00] VITALS: BP 155/88
[2019-03-19 07:42] VITALS: BP 148/92
[2019-03-19 07:43] VITALS: BP 148/92
--- NOTE | 2019-03-19 08:17 | Progress Note ---
DATE: SUBJECTIVE: The patient is here for atrial fibrillation with RVR, cardioverted with history of sleep apnea and history of recent diagnosis of acute congestive heart failure. CURRENT MEDICATIONS: Include apixaban, famotidine, furosemide, lisinopril, metoprolol, pantoprazole, and Zofran. OBJECTIVE: VITAL SIGNS: Temperature 97.7, pulse 63, blood pressure is 155/88, pulse ox 100% that was on 2 L of oxygen. GENERAL: The patient apparently slept pretty well yesterday using BiPAP. No chest pain or shortness of breath. No complaints today. HEENT: Normocephalic, atraumatic. Pupils are reactive to light and accommodation. CVS: S1, S2 normal. Regular rate and rhythm. ABDOMEN: Nontender, nondistended. EXTREMITIES: No clubbing. No cyanosis. Positive for trace edema. LABORATORY VALUES: The patient's hemoglobin 15.1, hematocrit of 46.7. Chemistries; BUN 18, creatinine 0.99, glucose is 128, LDL was 102. ASSESSMENT: 1. Acute congestive heart failure, systolic. 2. Atrial fibrillation with rapid ventricular response, corrected by cardioversion. 3. Acute pulmonary embolism. PLAN: Continue the patient on beta blockade. BHARGAV inhibitors had been added by Cardiology yesterday. The patient has been switched to Eliquis. Do labs today. Possible discharge today depending on clinical course. The patient can be switched to p.o. Lasix. Further recommendation per clinical course. The patient has been followed by Dr. Lopez as an outpatient basis and also needs a CPAP titration for sleep apnea. MD BEATA Ling/MODL /[id number]
[2019-03-19] MEDS ORDERED: METOPROLOL SUCCINATE 50 MG TAB XL PO SCH (09:00)
[2019-03-19] MEDS ORDERED: LISINOPRIL 10 MG TAB PO SCH (09:00)
[2019-03-19] MEDS: FUROSEMIDE INJ 10 MG/ML 4 ML VIAL IV SCH (09:15)
[2019-03-19] MEDS: FAMOTIDINE 20 MG/2 ML VIAL IV SCH (09:15)
[2019-03-19] MEDS: PANTOPRAZOLE SOD 40 MG TABEC PO SCH (09:15)
[2019-03-19] MEDS: APIXABAN 5 MG TABLET PO SCH (09:15)
[2019-03-19 09:23] LABS: BASOPHILS # (AUTO) 0.1 (0.0-0.1); BASOPHILS % 0.8 % (0.0-1.0); EOSINOPHILS # (AUTO) 0.3 (0.0-0.4); EOSINOPHILS % 3.8 % (0.0-6.0); HEMATOCRIT 47.7 % (38.2-49.6); HEMOGLOBIN 15.7 g/dL (14.0-18.0); LYMPHOCYTES # (AUTO) 1.1 (1.0-3.2); LYMPHOCYTES % 13.5 % (18.0-39.1); MEAN CORPUSCULAR HEMOGLOBIN 27.7 pg (28-32); MEAN CORPUSCULAR HGB CONC 32.9 g/dL (31-35); MEAN CORPUSCULAR VOLUME 84.3 fL (81-99); MONOCYTES # (AUTO) 0.5 (0.2-0.8); MONOCYTES % 6.5 % (4.4-11.3); NEUTROPHILS # (AUTO) 6.2 (2.1-6.9); NEUTROPHILS % 74.3 % (38.7-80.0); PLATELET COUNT 185 x10e3/uL (140-360); RED BLOOD COUNT 5.66 x10e6/uL (4.3-5.7); RED CELL DISTRIBUTION WIDTH 13.6 % (11.7-14.4)
[2019-03-19 09:45] LABS: ALANINE AMINOTRANSFERASE 46 IU/L (0-55); ALBUMIN 3.1 g/dL (3.5-5.0); ALBUMIN/GLOBULIN RATIO 1.1 (0.8-2.0); ALKALINE PHOSPHATASE 50 IU/L (40-150); ANION GAP 11.8 mmol/L (8-16); BLOOD UREA NITROGEN 16 mg/dL (7-26); BUN/CREATININE RATIO 16 (6-25); CALCIUM 8.7 mg/dL (8.4-10.2); CARBON DIOXIDE 32 mmol/L (22-29); CHLORIDE 101 mmol/L (98-107); CREATININE, SERUM 0.98 mg/dL (0.72-1.25); EST GLOMERULAR FILTRATION RATE > 60 ML/MIN (60-); GLUCOSE 162 mg/dL (74-118); POTASSIUM 3.8 mmol/L (3.5-5.1); SODIUM 141 mmol/L (136-145)
[2019-03-19] MEDS ORDERED: LISINOPRIL10 MG PO (09:51)
[2019-03-19] MEDS ORDERED: ATORVASTATIN CA10 MG PO (09:52)
[2019-03-19] MEDS ORDERED: LASIX40 MG PO (09:54)
[2019-03-19] MEDS ORDERED: METOPROLOL SUCC50 MG PO (09:54)
== END 2019-03-19 10:45 | disposition home or self-care (01) | DRG 175 ==
LOC: ER 11:14 → ERHOLD 13:23 → ICU 15:15 → IMCU 03-17 21:37
PROVIDERS: ADMIT Family Medicine; ATTEND Family Medicine
PROC: B24BZZ4 Ultrasonography of Heart with Aorta, Transesophageal (ICD-10-PCS; principal; 2019-03-17)
PROC: 5A2204Z Restoration of Cardiac Rhythm, Single (ICD-10-PCS; 2019-03-17)
DX: I26.09 Other pulmonary embolism with acute cor pulmonale (principal); I50.21 Acute systolic (congestive) heart failure; Z68.43 Body mass index [BMI] 50.0-59.9, adult; E66.2 Morbid (severe) obesity with alveolar hypoventilation; I48.91 Unspecified atrial fibrillation; K21.9 Gastro-esophageal reflux disease without esophagitis; N40.0 Benign prostatic hyperplasia without lower urinary tract symptoms; I11.0 Hypertensive heart disease with heart failure; E78.5 Hyperlipidemia, unspecified; N52.9 Male erectile dysfunction, unspecified; E29.1 Testicular hypofunction
CPT/HCPCS: 36415; 71045; 71260; 80053; 80061; 81001; 82270; 82550; 82553; 83735; 83880; 84436; 84443; 84479; 84484; 85025; 85379; 85610; 85730; 93005; 93306; 93307; 93312; 93325; 94660; 99284; J1160; J1650; J1940; J2250; J7030; J7040; Q9967

== ENCOUNTER → 2019-04-07 | Outpatient (CLI) | payer OTHER ==
[~2019-04-07] MED LIST changes: +ATORVASTATIN CA10 MG PO; +LASIX40 MG PO; +LISINOPRIL10 MG PO; +METOPROLOL SUCC50 MG PO
== END ==
LOC: NM 09:40
PROVIDERS: ATTEND Internal Medicine
DX: R07.9 Chest pain, unspecified (principal)

== ENCOUNTER → 2019-04-14 | Day surgery (SDC) | payer OTHER ==
[2019-04-13 17:06] LABS: BASOPHILS # (AUTO) 0.1 (0.0-0.1); BASOPHILS % 0.5 % (0.0-1.0); EOSINOPHILS # (AUTO) 0.1 (0.0-0.4); HEMATOCRIT 49.6 % (38.2-49.6); HEMOGLOBIN 16.7 g/dL (14.0-18.0); LYMPHOCYTES # (AUTO) 1.7 (1.0-3.2); LYMPHOCYTES % 16.1 % (18.0-39.1); MEAN CORPUSCULAR HEMOGLOBIN 27.7 pg (28-32); MEAN CORPUSCULAR HGB CONC 33.7 g/dL (31-35); MEAN CORPUSCULAR VOLUME 82.3 fL (81-99); MONOCYTES # (AUTO) 0.7 (0.2-0.8); MONOCYTES % 6.6 % (4.4-11.3); NEUTROPHILS # (AUTO) 7.8 (2.1-6.9); NEUTROPHILS % 74.7 % (38.7-80.0); PLATELET COUNT 198 x10e3/uL (140-360); RED BLOOD COUNT 6.03 x10e6/uL (4.3-5.7); RED CELL DISTRIBUTION WIDTH 13.3 % (11.7-14.4)
[2019-04-13 17:19] LABS: INR 1.16; PROTHROMBIN TIME 15.4 seconds (11.9-14.5)
[2019-04-13 17:25] LABS: ALBUMIN 3.6 g/dL (3.5-5.0); ALBUMIN/GLOBULIN RATIO 1.3 (0.8-2.0); CALCIUM 8.9 mg/dL (8.4-10.2); CREATININE, SERUM 1.3 mg/dL (0.72-1.25)
[~2019-04-14] VITALS: Ht 188 cm; Wt 181.4 kg
[2019-04-14] VITALS (12 sets, daily range): BP systolic 82–106; BP diastolic 47–85
[~2019-04-14] MED LIST changes: +ALBUTEROL0.63 MG/3; +AMIODARONE HCL200 MG PO; +AMLODIPINE BESY10 MG PO; +BENZOCAINE 20% SPR 60 ML CAN ONE; +DOXYCYCLINE HY100 MG PO; +ENTRESTO PO; +Eliquis PO; +FENTANYL CITRATE/PF 100MCG/2 ML INJ ONE; +KETAMINE HCL INJ 50 MG/ML 10 ML VIAL ONE; +LIDOCAINE 1% W/EPINEPHRINE 20 ML VIAL ONE; +MIDAZOLAM HCL 2 MG/2 ML VIAL ONE; +PANTOPRAZOLE SO20 MG PO; +POTASSIUM CHLO20 ME1 PO; +PROPOFOL IV EMULSION 10 MG/ML 20 ML VIAL ONE; +SODIUM CHLORIDE 0.9% 1000ML 1,000 ML ONE; -ZYRTEC10 M3; +ZYRTEC10 M3 PO
--- NOTE | 2019-04-14 15:00 | NUR ---
1500 Received report from Eva Gomez s/p CLAY with loop recorder Had successful MAC cardioversion [id number]. successful conversion rapid afibrillaton to sinus rhythm. In Rm #9 Left chest noted no s/s bleeding. Stable vs and Ekg back to baseline orientationx4. Respiration shallow and regular. 96% RA Abdomen soft and non tender Denies necessity to defecate or urinate. Bilateral PPx4 Pt/Pd. Left iv site w/o s/s infiltration. Loop recorder education given Pt has copies of POC . Sync completed with monitor and wi-fi Pt understands importance of module placement near bedside. Iv removed Coban dressing to iv site no s/s infiltration. 1530 dc home per w/c assist to car with [employer] escort pt aware of importance of f/o care. NO gross issues pain pallor pressure or dysrhythmia.chest dressing remains dry and intact. Denies c/o CP or SOB Has copies dc papers. bautista/dakota
--- NOTE | 2019-06-20 12:52 | Operative Report ---
DATE OF PROCEDURE: 04/14/2019 SURGEON: Dez Levin MD PROCEDURE PERFORMED: Implantable loop recorder placement. PROCEDURE IN DETAIL: The patient's chest was prepped and draped in a sterile fashion. Lidocaine with 1% epi was then used to infiltrate the subcutaneous space overlying the fourth intercostal space. The implantable loop recorder was inserted into this space and the incision was then closed with Steri-Strips and Dermabond. The patient tolerated the procedure well. There were no immediate complications. FINAL RECOMMENDATIONS: 1. The patient will be discharged home after observation. 2. The patient will follow up in the clinic 2 weeks postprocedure. MD LESTER Zee/JUNEL /[id number]
--- NOTE | 2019-06-20 13:13 | Operative Report ---
DATE OF PROCEDURE: 04/14/2019 SURGEON: Dez Levin MD Cardiac Catheterization Report INDICATION FOR PROCEDURE: AFib with RVR. PROCEDURES PERFORMED: 1. Transesophageal echocardiogram. 2. Cardioversion. DESCRIPTION OF PROCEDURE: The patient was brought to the Endo suite in a fasting state. The throat was numbed and bite guard was placed. The patient was given Propofol by Anesthesia and the CLAY probe was inserted without any difficulty. CLAY was performed. Please see final report for details of diagnoses. However, there was no thrombus visualized in the left atrium. A 200 joule cardioversion synchronize was performed to convert the patient back into normal sinus rhythm. The patient tolerated the procedure well. There were no immediate complications. FINAL RECOMMENDATIONS: 1. Recovery in the PACU. 2. The patient will be discharged home after observation completed. Dez Levin MD KVP/MODL /[id number]
== END | disposition home or self-care (01) ==
LOC: CATH LAB 10:04 → EDSTATUS 12:00
PROVIDERS: ATTEND Internal Medicine
DX: I48.0 Paroxysmal atrial fibrillation (principal); I20.8 Other forms of angina pectoris; I11.0 Hypertensive heart disease with heart failure; I50.9 Heart failure, unspecified; G47.33 Obstructive sleep apnea (adult) (pediatric); E66.01 Morbid (severe) obesity due to excess calories; K21.9 Gastro-esophageal reflux disease without esophagitis; Z01.810 Encounter for preprocedural cardiovascular examination; Z01.812 Encounter for preprocedural laboratory examination; Z79.02 Long term (current) use of antithrombotics/antiplatelets; Z68.44 Body mass index [BMI] 60.0-69.9, adult
CPT/HCPCS: 33285; 36415; 80053; 85025; 85610; 92960; 93005 ×2; 93312; 93320; 93325; C1764; J2250; J2704; J7030; 93307; J3010

== ENCOUNTER → 2019-05-18 | Day surgery (SDC) | payer OTHER ==
[2019-05-16 12:04] LABS: BASOPHILS # (AUTO) 0.1 (0.0-0.1); BASOPHILS % 0.7 % (0.0-1.0); EOSINOPHILS # (AUTO) 0.1 (0.0-0.4); EOSINOPHILS % 1.5 % (0.0-6.0); HEMATOCRIT 47.9 % (38.2-49.6); HEMOGLOBIN 15.9 g/dL (14.0-18.0); LYMPHOCYTES # (AUTO) 1.4 (1.0-3.2); LYMPHOCYTES % 16.5 % (18.0-39.1); MEAN CORPUSCULAR HEMOGLOBIN 27.7 pg (28-32); MEAN CORPUSCULAR HGB CONC 33.2 g/dL (31-35); MEAN CORPUSCULAR VOLUME 83.6 fL (81-99); MONOCYTES # (AUTO) 0.7 (0.2-0.8); MONOCYTES % 8.3 % (4.4-11.3); NEUTROPHILS # (AUTO) 5.8 (2.1-6.9); NEUTROPHILS % 70.7 % (38.7-80.0); PLATELET COUNT 182 x10e3/uL (140-360); RED BLOOD COUNT 5.73 x10e6/uL (4.3-5.7); RED CELL DISTRIBUTION WIDTH 13.1 % (11.7-14.4)
[2019-05-16 12:26] LABS: ALBUMIN 3.7 g/dL (3.5-5.0); ALBUMIN/GLOBULIN RATIO 1.2 (0.8-2.0); ANION GAP 12.1 mmol/L (8-16); CALCIUM 8.7 mg/dL (8.4-10.2); CREATININE, SERUM 1.54 mg/dL (0.72-1.25); POTASSIUM 5.1 mmol/L (3.5-5.1)
[2019-05-16 12:34] LABS: INR 1.07; PROTHROMBIN TIME 14.4 seconds (11.9-14.5)
[~2019-05-18] VITALS: Ht 188 cm; Wt 187.3 kg
[2019-05-18] VITALS (9 sets, daily range): BP systolic 100–134; BP diastolic 51–77
[~2019-05-18] MED LIST changes: -BENZOCAINE 20% SPR 60 ML CAN ONE; +HEPARIN SOD/SOD CHLORIDE 2,000 ML ONE; +IOPAMIDOL 370 MG/ML 200 ML INFUS..BTL INJ ONE; -KETAMINE HCL INJ 50 MG/ML 10 ML VIAL ONE; -LIDOCAINE 1% W/EPINEPHRINE 20 ML VIAL ONE; +LIDOCAINE HCL 2% LOCAL 20 ML VIAL ONE; -PROPOFOL IV EMULSION 10 MG/ML 20 ML VIAL ONE; +VERAPAMIL HCL 2.5 MG/ML 2 ML VIAL ONE
--- NOTE | 2019-05-18 12:25 | NUR ---
bedside report received from Billy James RN. Alert oriented and appropriate, PERRLA, respirations even and unlabored to room air. Pulses x4 extremities equal and strong. Pedal pulses PT/DP palpable. TR Band to right wrist. + neurovascular function. Cap fill brisk < 3 sec. Skin warm and dry integrity appears intact. IV 20g to left arm presents healthy w/o s/s of infiltration or complaint. Abdomen soft and supple. pt denies need to urinate or defecate. Personal affects with patient. Family/firends brought to room. Pt verbalizes understanding of POC. bedside telemetry in use. bed low and locked, call light within reach. Currently w/o complaint of pain or need. PO fluids provided-cgf
--- NOTE | 2019-05-18 12:30 | NUR ---
1230pm Bedside report received Jeronimo MCKENNA. [id number] oriented and appropriate, PERRLA, respirations even and unlabored to room air. Pulses x4 extremities equal and strong. Pedal pulses PT/DP x4 Feet swollen Cap fill brisk < 3 sec. Rt arm TR band 14cc NO hematoma or oozing. Rt sheath remain in place NO gross issues pain pallor pressure or dysrhythmia. Skin warm and dry integrity appears Dry intact IV 20g fluids off, presents healthy w/o s/s of infiltration or complaint. Abdomen soft and supple. pt offered toileting, denies need to urinate or defecate. No personal affects with patient. Family at bedside. Pt and family verbalizes understanding keep rt arm still Rt upper arm sheath remains in place.Offered po intake tolerating well. Denies c/o Cp or SOb Discharge planning discussed with family and pt. ds/rn
--- NOTE | 2019-05-18 12:30 | NUR ---
1230 Bedside report received from CLARISA Velasquez.Identiferx2. Alert oriented and appropriate, PERRLA, respirations even and unlabored to room air. Pulses x4 extremities equal and strong. Pedal pulses PT/DP and marked. Cap fill brisk < 3 sec. Rt Brachial venous sheath in place. No hematoma Dressing dry and intact.Rt Radial TR band 14cc Ok to reduce air at 1315pm.NO gross issues pain pallor pressure or dysrhythmia.No hematoma or oozing at TR band site. Skin warm and dry integrity appears. IV 20g to left hand presents healthy w/o s/s of infiltration or complaint. Abdomen soft and supple. pt offered toileting, denies need to urinate or defecate. No personal affects with patient. Family Sister . Discussed POC and copies of dc plans given to pt. bautista/clarisa
--- NOTE | 2019-05-18 12:41 | NUR ---
report off to Gali Dennis RN of stated facts.
--- NOTE | 2019-05-18 13:15 | NUR ---
1315 Air removal of TR band initiated NO gross sign bleeding normal neuro vascular function 1430 Air removal completed at 15minute intervals .ds/rnNO gross issues pain pallor pressure. Normal neurovascular issues. 2x2 dressing and Coban dressing Wrist splint in place. dc home with copies of POC Site w/o s/s hematoma or bleeding. NO gross issues of pain pallor or dysrhythmia. Iv removed and discharged per w/c per private car and family driver education instructor.Site covered with Coban and 2x2 no s/s infiltration. ds/rn
--- NOTE | 2019-05-18 19:53 | Operative Report ---
DATE OF PROCEDURE: 05/18/2019 SURGEON: Dez Levin MD CARDIAC CATHETERIZATION REPORT INDICATION FOR PROCEDURE: Chest pain and positive stress test, congestive heart failure. PREPROCEDURE ASSESSMENT: The patient's medical history, social history, and prior experience with anesthesia was reviewed prior to the procedure. The patient was deemed to be an appropriate candidate for moderate sedation. The risks, benefits, and alternatives to treatment were explained to the patient prior to the procedure. Informed consent was obtained. MEDICATIONS: Please see nursing notes for medications administered during the procedure. PROCEDURES PERFORMED: 1. Coronary angiography, right radial approach. 2. Left heart catheterization. 3. Right heart catheterization, right radial approach. 4. Moderate sedation, 65 minutes. PROCEDURE DETAILS: The patient was brought to the cardiac catheterization laboratory in a fasting state. Right wrist was prepped and draped in a sterile fashion. Antecubital IV was present, which was placed sterilely in the holding area prior to the procedure. We started the procedure with a right heart catheterization. Right antecubital IV was wired using a micropuncture wire, which was serially dilated up to a 7-Austrian sheath. A 6-Austrian thermodilution [place] catheter was inserted into the right brachial vein and advanced into the right atrium. Balloon was inflated and we proceeded to perform right heart catheterization, numbers as documented below. After the right heart catheterization was completed, [place] was removed and we proceeded with a left heart catheterization and coronary angiography. For coronary angiography, access to the right radial artery was obtained using modified Seldinger technique and a 6-Austrian Slender sheath was inserted in the right radial artery. Coronary angiography was performed using Johanna radial catheter. Left heart catheterization was performed using a pigtail catheter. Multiple orthogonal views were taken. All catheters were removed over a wire. The case ended without any immediate complications. SIGNIFICANT FINDINGS: Coronary angiography demonstrated followin. Left main coronary artery. Large caliber, no significant disease. 2. LAD. Large vessel goes to the apex one large diagonal branch. No significant disease. 3. Left circumflex. Large vessel, nondominant. One large OM branch. No significant disease. 4. RCA. Large dominant RCA with one large PL and medium-size PDA system. No significant disease. 5. Left heart catheterization. LV pressure 129, LVEDP 23. 6. Right heart catheterization. RA pressure 28/27/26. RV pressure 55/23/27. PA pressure 38/29/33. Pulmonary capillary wedge pressure was 32. 7. Left ventriculogram showed LV ejection fraction of 55% to 60%. Thermodilution cardiac output was 6.6 L/minute. Cardiac index was 2.2 L/minute for thermodilution. Breezy cardiac output showed PA saturation of 60 and right radial saturation of 89% correlating to Breezy cardiac output of 5.4 L/minute and cardiac index of 1.9 L/minute per meter square. ESTIMATED BLOOD LOSS: 20 mL. GRAFTS AND IMPLANTS: None. SPECIMENS REMOVED: None. COMPLICATIONS: None. FINAL RECOMMENDATIONS: 1. We will add diuretics to his current heart failure regimen given elevated right heart pressures. 2. Continue optimal medical therapy and risk factor control otherwise. 3. Follow up in clinic 2 weeks post procedure. MD LESTER Zee/LEATHA /[id number]
== END | disposition home or self-care (01) ==
LOC: CATH LAB 08:35
PROVIDERS: ATTEND Internal Medicine
DX: I20.8 Other forms of angina pectoris (principal); R94.39 Abnormal result of other cardiovascular function study; I11.0 Hypertensive heart disease with heart failure; I50.22 Chronic systolic (congestive) heart failure; I48.0 Paroxysmal atrial fibrillation; Z01.812 Encounter for preprocedural laboratory examination; Z79.02 Long term (current) use of antithrombotics/antiplatelets; Z68.44 Body mass index [BMI] 60.0-69.9, adult
CPT/HCPCS: 36415; 80053; 85025; 85610; 93460; C1751; C1769; C1887; J2001; J2250; J3010; J7030; Q9967

== ENCOUNTER 2022-01-04 10:31 | Observation (INO) | payer BC, OTHER ==
[~2022-01-04] VITALS: Ht 185.4 cm; Wt 172.4 kg
[~2022-01-04 10:31] MED LIST changes: -CIALIS2.5 MG; +CIALIS2.5 MG PO; -FENTANYL CITRATE/PF 100MCG/2 ML INJ ONE; -HEPARIN SOD/SOD CHLORIDE 2,000 ML ONE; -IOPAMIDOL 370 MG/ML 200 ML INFUS..BTL INJ ONE; -LIDOCAINE HCL 2% LOCAL 20 ML VIAL ONE; -MIDAZOLAM HCL 2 MG/2 ML VIAL ONE; -SODIUM CHLORIDE 0.9% 1000ML 1,000 ML ONE; -VERAPAMIL HCL 2.5 MG/ML 2 ML VIAL ONE
[2022-01-04] MEDS ORDERED: METOPROLOL TARTRATE INJ 1 MG/ML VIAL IV ONE (10:45)
[2022-01-04 10:49] LABS: BASOPHILS # (AUTO) 0.1 (0.0-0.1); BASOPHILS % 0.4 % (0.0-1.0); EOSINOPHILS % 0.3 % (0.0-6.0); HEMATOCRIT 53.1 % (38.2-49.6); HEMOGLOBIN 18.5 g/dL (14.0-18.0); LYMPHOCYTES # (AUTO) 1.1 (1.0-3.2); LYMPHOCYTES % 9.7 % (18.0-39.1); MEAN CORPUSCULAR HEMOGLOBIN 29.7 pg (28-32); MEAN CORPUSCULAR HGB CONC 34.8 g/dL (31-35); MEAN CORPUSCULAR VOLUME 85.2 fL (81-99); MONOCYTES # (AUTO) 0.8 (0.2-0.8); MONOCYTES % 7.2 % (4.4-11.3); NEUTROPHILS # (AUTO) 9.4 (2.1-6.9); PLATELET COUNT 220 x10e3/uL (140-360); RED BLOOD COUNT 6.23 x10e6/uL (4.3-5.7); RED CELL DISTRIBUTION WIDTH 12.9 % (11.7-14.4)
[2022-01-04] MEDS ORDERED: SODIUM CHLORIDE 0.9% 1000ML 1,000 ML ONE ×2 (10:51→12:40)
[2022-01-04] MEDS ORDERED: ETOMIDATE 2 MG/ML 10 ML INJ IV STA (11:07)
[2022-01-04 11:09] LABS: ALBUMIN 3.4 g/dL (3.5-5.0); ALBUMIN/GLOBULIN RATIO 1.1 (0.8-2.0); ANION GAP 14.7 mmol/L (8-16); CALCIUM 8.4 mg/dL (8.4-10.2); CREATININE, SERUM 2.19 mg/dL (0.72-1.25); POTASSIUM 3.7 mmol/L (3.5-5.1)
[2022-01-04] MEDS ORDERED: SODIUM CHLORIDE 0.9% 1000ML 1,000 ML IV ONE (12:30)
[2022-01-04 14:58] VITALS: BP 98/72
[2022-01-04 15:07] VITALS: BP 98/72
[2022-01-04] MEDS ORDERED: FUROSEMIDE40 MG PO (15:17)
[2022-01-04] MEDS ORDERED: POTASSIUM CHLO20 ME1 PO (15:17)
[2022-01-04] MEDS ORDERED: XARELTO20 MG PO (15:17)
[2022-01-04] MEDS ORDERED: TEMAZEPAM30 MG PO (15:17)
[2022-01-04] MEDS ORDERED: ENTRESTO 97 MG1 EACH PO (15:17)
[2022-01-04 16:40] VITALS: BP 106/67
[2022-01-04] MEDS ORDERED: ONDANSETRON HCL 4 MG ORAL DISINTEGRATING TAB PO PRN (18:30)
[2022-01-04] MEDS ORDERED: ACETAMINOPHEN 325 MG TAB PO PRN (18:30)
[2022-01-04] MEDS ORDERED: CLONIDINE HCL 0.1 MG TAB PO PRN (18:30)
[2022-01-04] MEDS ORDERED: LORATADINE 10 MG TAB PO PRN (18:30)
[2022-01-04] MEDS ORDERED: METOPROLOL SUCCINATE 50 MG TAB XL PO SCH (21:00)
[2022-01-04] MEDS ORDERED: TEMAZEPAM 15 MG CAP PO SCH (21:00)
[2022-01-04] MEDS: APIXABAN 5 MG TABLET PO SCH (21:52)
[2022-01-04 22:33] VITALS: BP 108/64
[2022-01-04 22:36] VITALS: BP 108/64
[2022-01-05] VITALS (7 sets, daily range): BP systolic 97–142; BP diastolic 62–83
[2022-01-05] MEDS ORDERED: TAMSULOSIN HCL 0.4 MG CAP PO SCH (09:00)
[2022-01-05] MEDS ORDERED: POTASSIUM CHLORIDE 20 MEQ TAB CR PO SCH (09:00)
[2022-01-05] MEDS ORDERED: PANTOPRAZOLE SOD 40 MG TABEC PO SCH (09:00)
[2022-01-05] MEDS ORDERED: ATORVASTATIN 10 MG TAB PO SCH (09:00)
[2022-01-05] MEDS: SACUBITRIL/VALSARTAN 1 EACH TABLET PO SCH ×2 (09:18→16:43)
[2022-01-05] MEDS: APIXABAN 5 MG TABLET PO SCH (09:18)
[2022-01-05 10:08] LABS: BASOPHILS % 0.4 % (0.0-1.0); EOSINOPHILS % 0.4 % (0.0-6.0); HEMATOCRIT 48.7 % (38.2-49.6); HEMOGLOBIN 16.4 g/dL (14.0-18.0); LYMPHOCYTES # (AUTO) 1.3 (1.0-3.2); LYMPHOCYTES % 14.7 % (18.0-39.1); MEAN CORPUSCULAR HEMOGLOBIN 29.9 pg (28-32); MEAN CORPUSCULAR HGB CONC 33.7 g/dL (31-35); MEAN CORPUSCULAR VOLUME 88.7 fL (81-99); MONOCYTES # (AUTO) 0.8 (0.2-0.8); MONOCYTES % 8.6 % (4.4-11.3); NEUTROPHILS # (AUTO) 6.6 (2.1-6.9); NEUTROPHILS % 74.2 % (38.7-80.0); PLATELET COUNT 182 x10e3/uL (140-360); RED BLOOD COUNT 5.49 x10e6/uL (4.3-5.7); RED CELL DISTRIBUTION WIDTH 12.8 % (11.7-14.4)
[2022-01-05 10:27] LABS: ALBUMIN 3.2 g/dL (3.5-5.0); ALBUMIN/GLOBULIN RATIO 1.1 (0.8-2.0); ANION GAP 13.4 mmol/L (8-16); CALCIUM 8.5 mg/dL (8.4-10.2); CREATININE, SERUM 1.6 mg/dL (0.72-1.25); POTASSIUM 3.4 mmol/L (3.5-5.1)
[2022-01-05] MEDS ORDERED: POTASSIUM CHLORIDE 20 MEQ TAB CR PO NR (11:45)
[2022-01-05] MEDS ORDERED: ETOMIDATE 2 MG/ML 10 ML INJ IV ONE (12:50)
== END 2022-01-05 21:10 | disposition home or self-care (01) ==
LOC: ER 10:42 → ERHOLD 12:33 → MED/SURG2 14:05
PROVIDERS: ADMIT Family Medicine; ATTEND Family Medicine
DX: I48.0 Paroxysmal atrial fibrillation (principal); I11.0 Hypertensive heart disease with heart failure; F10.10 Alcohol abuse, uncomplicated; E66.01 Morbid (severe) obesity due to excess calories; Z68.43 Body mass index [BMI] 50.0-59.9, adult; Z20.822 Contact with and (suspected) exposure to COVID-19; I50.43 Acute on chronic combined systolic (congestive) and diastolic (congestive) heart failure; K21.9 Gastro-esophageal reflux disease without esophagitis; N17.9 Acute kidney failure, unspecified; Z91.14 Patient's other noncompliance with medication regimen
CPT/HCPCS: 36415; 71045; 80053; 83690; 83880; 84484; 85025; 93005; 93306; 94660; 94799; 99284; G0378; J7030; U0002